=== PATIENT | male | born 1995 | race African-American/Black ===

== ENCOUNTER 2021-10-26 02:35 | Emergency (ER) | payer MEDICAID, OTHER ==
[~2021-10-26] VITALS: Ht 188 cm; Wt 76.2 kg
[2021-10-26 08:40] VITALS: BP 121/76
[2021-10-26 10:05] LABS: Basophils # (auto) 0.2 10 ^3/uL (0-0.2); Basophils % (auto) 2.4 % (0.0-2.0); Eosinophils # (auto) 0.2 10 ^3/uL (0-0.8); Eosinophils % (auto) 2.9 % (0.0-7.0); Hemoglobin 15.2 g/dL (13.5-17.5); Lymphocytes # (auto) 3.6 10 ^3/uL (0.4-5.4); Lymphocytes % (auto) 45.4 % (10.0-50.0); Mean Corpuscular Hemoglobin 28.8 pg (28.0-32.0); Mean Corpuscular Hgb Conc. 33.8 g/dL (32.0-36.0); Mean Corpuscular Volume 85.2 fL (80.0-100.0); Monocytes # (auto) 0.8 10 ^3/uL (0-1.3); Monocytes % (auto) 9.5 % (0.0-12.0); Neutrophils # (auto) 3.2 10 ^3/uL (1.6-8.6); Neutrophils % (auto) 39.8 % (37.0-80.0); Nucleated Red Blood Cells % 0.2 %; Red Blood Cells 5.28 10^6/uL (4.5-5.90)
[2021-10-26 10:10] LABS: Calcium 9.5 mg/dL (8.5-10.1)
[2021-10-26 10:17] LABS: Albumin 4.1 g/dL (3.4-5.0); BUN/Creatinine Ratio 9.5; Bilirubin, Total 0.4 mg/dL (0.2-1.0); Total Protein 8.6 g/dL (6.4-8.2)
[2021-10-26] MEDS ORDERED: OMEP-434 PO (11:32)
== END 2021-10-26 11:41 | disposition home or self-care (01) ==
LOC: ER 02:35
DX: K21.9 Gastro-esophageal reflux disease without esophagitis (principal)
CPT/HCPCS: 36415; 71045; 80053; 84484; 85025; 93005

== ENCOUNTER 2025-05-08 00:02 | Emergency (ER) | payer MEDICAID ==
[~2025-05-08] VITALS: Ht 188 cm; Wt 77.5 kg
[~2025-05-08 00:02] MED LIST: OMEP-434 PO
[2025-05-08 00:06] VITALS: BP 132/87; PULSE 71; RESP 16; TEMP 97.3; O2SAT 97
== END 2025-05-08 00:56 | disposition left against medical advice (07) ==
LOC: ER 00:02
DX: M54.2 Cervicalgia (principal); Z53.21 Procedure and treatment not carried out due to patient leaving prior to being seen by health care provider